=== PATIENT | female | born 1995 | race Caucasian/White ===

== ENCOUNTER 2016-10-11 14:00 | Outpatient (CLI) | payer MEDICAID ==
[2016-10-11 16:18] LABS: BASOPHILS % 0.3 % (0.0-2.0); CONDITION 1; EOSINOPHILS # 0.1 10^3/ul (0.0-0.5); EOSINOPHILS % 0.6 % (0.0-7.0); HEMATOCRIT 30.6 % (37.0-47.0); HEMOGLOBIN 10.2 g/dl (12.0-16.0); LH ANALYZER COMMENTS 1; LYMPHOCYTES # 1.6 10^3/ul (0.8-2.9); LYMPHOCYTES % 15.5 % (18.0-55.0); MEAN CORPUSCULAR HEMOGLOBIN 25.5 pg (29.0-33.0); MEAN CORPUSCULAR HGB CONC 33.3 g/dl (32.0-37.0); MEAN CORPUSCULAR VOLUME 76.5 fl (72.0-104.0); MEAN PLATELET VOLUME 9.6 fl (7.4-10.4); MONOCYTE # 0.9 10^3/ul (0.3-0.9); MONOCYTES % 8.1 % (0.0-13.0); NEUTROPHILS % 75.5 % (30.0-74.0); PLATELET COUNT 304 10^3/UL (140-440); RED CELL DISTRIBUTION WIDTH 14.2 % (11.5-14.5); UNCORRECTED WBC 10.6 10^3/ul (4.8-10.8); WHITE BLOOD COUNT 10.6 10^3/ul (4.8-10.8)
--- NOTE | 2016-10-11 17:10 | QN ---
Documentation Comment 21 y/o female at 37 + weeks C/S onset of UC sand ? SROM at 0900 AM denies complications during PMH , PSH negative On Exam: Cx; 1 cm 30-40%( per nurse) BPP 8/8 FHTs Reactive on EFM minimal UCs seen will D/C home with labor precautions PATRICIO ESPARZA MD Oct 11, 2016 17:10
--- NOTE | 2016-10-11 19:07 | RADRPT ---
PROCEDURE: OB ultrasound limited for biophysical profile . CLINICAL INDICATION: Possible spontaneous rupture of membranes. TECHNIQUE: Multiple sonographic images of the pelvis were obtained. Transabdominal view of the gr avid uterus are available for review. The images were reviewed on a PACS workstation. COMPARISON: None FINDINGS: breathing movement = 2/2 tone = 2/2 motion = 2/2 Amniotic fluid volume = 2/2 MAYRA = 11.2 cm Cephalic presentation. Heart rate 163 beats per minute. Posterior grade II placenta. IMPRESSION: 1. Single viable intrauterine gestation. 2. Biophysical profile = 8/8. 3. MAYRA = 11.2 cm. RPTAT: HJPL .Elpidio Ibrahim MD, MD Date Time Electronically viewed and signed by .Elpidio Ibrahim MD, on 10/11/2016 19:07 .L/
== END 2016-10-11 17:30 | disposition home or self-care (01) ==
LOC: OBT 14:00 → L-D 14:00 → OBT 17:30
PROVIDERS: ATTEND Obstetrics & Gynecology
DX: O62.9 Abnormality of forces of labor, unspecified (principal); O26.893 Other specified pregnancy related conditions, third trimester; Z3A.37 37 weeks gestation of pregnancy
CPT/HCPCS: 36415; 76818; 84112; 85025; Z7500; G0463

== ENCOUNTER 2016-10-28 16:00 | Inpatient (IN) | payer MEDICAID ==
[~2016-10-28] VITALS: Ht 154.9 cm; Wt 65.3 kg
[2016-10-28 16:26] VITALS: Ht 154.9 cm; Wt 65.3 kg
[2016-10-28 16:27] VITALS: BP 111/66; PULSE 96; RESP 18
--- NOTE | 2016-10-28 17:43 | TRIAGE ---
OB Triage Datetime Report Generated by CPN: 10/28/2016 17:42 Datetime: 10/28/2016 17:09 Vaginal Exam Dilatation (cms): 3.5 Effacement (%): 70 Station: -2 Exam By: MKHEMANI Vaginal Bleeding: None Cervix, Consistency: Moderate Cervix, Position: Midposition Datetime: 10/28/2016 16:23 Assessment Type: Triage Maternal Assessment Level of Consciousness: Fully Conscious DTR's/Clonus: DTRs 2+; No Clonus Headache: Denies Blurred Vision: No Respiratory Effort: Unlabored; Regular Rhythm; Equal Expansion Breath Sounds, Left: Clear and Equal Breath Sounds, Right: Clear and Equal Nausea/Vomiting: Denies RUQ Epigastric Pain: Denies Lower Extremities Edema: None Degree: None Upper Extremities Edema: None Degree: None Facial Edema: None Fall Risk Assessment History of Falling: (0) No Secondary Diagnosis: (0) No Ambulatory Aid: (0) Bedrest/Nurse Assist IV Therapy: (0) No Gait: (0) Normal/Bedrest/Immobile Mental Status: (0) Oriented to Own Ability Fall Score: 0 Fall Risk Score Definition: No Risk: No action required Datetime: 10/28/2016 16:14 Time of Arrival: 10/28/2016 15:58 EGA: 40.0 Arrived By: Ambulatory Arrived From: Home Chief Complaint: c/o UC'S SINCE 1200 Movement: Present Contractions: Irregular Time Contractions Began: 10/28/2016 12:00 Rupture of Membranes: Denies Vaginal Bleeding: None Vaginal Discharge: Denies Recent Sexual Intercouse: Denies Abdominal Trauma: Not Applicable Patient Complaints: Contractions; Cramping; Back Pain Time Provider Notified: 10/28/2016 17:35 Provider Notified: SALVATORE Initial Plan: EFM, SVE Datetime: 10/11/2016 16:50 Labor Evaluation Frequency: IRREG Monitor Mode: External Duration (sec)2399: 50-60 Quality: Mild Pattern: Normal: <= 5 Contractions in 10 Minutes Resting Tone [place]: Relaxed Heart Rate FHR Baseline Rate: 125 Monitor Mode: External US Variability: Moderate 6-25 bpm Decelerations: None Category: Category I Pain Assessment Pain Scale: 0 Pain Presence: None/Denies Pain Type: N/A Pain Goal: 2 Pain Relief Measures: Comfort Measures Datetime: 10/11/2016 16:17 Stage of : OB Triage Datetime: 10/11/2016 15:45 Labor Evaluation Frequency: OCCAS Monitor Mode: External Duration (sec)2399: 50-60 Pattern: Normal: <= 5 Contractions in 10 Minutes Resting Tone [place]: Relaxed Heart Rate FHR Baseline Rate: 135 Monitor Mode: External US Variability: Moderate 6-25 bpm Decelerations: None Category: Category I Pain Assessment Pain Scale: 2 Pain Presence: None/Denies Pain Type: N/A Pain Goal: 0 Pain Relief Measures: Comfort Measures Datetime: 10/11/2016 15:10 Stage of : OB Triage Datetime: 10/11/2016 15:01 Stage of : OB Triage Datetime: 10/11/2016 14:57 Vaginal Exam Dilatation (cms): 1.0 Effacement (%): 50 Station: -2 Exam By: suzie jaylen Vaginal Bleeding: None Cervix, Consistency: Soft Cervix, Position: Midposition Presentation 'A': Cephalic Datetime: 10/11/2016 14:45 Stage of : OB Triage Assessment Type: Triage Maternal Assessment Level of Consciousness: Fully Conscious DTR's/Clonus: DTRs 2+; No Clonus Headache: Denies Blurred Vision: No Respiratory Effort: Unlabored; Regular Rhythm; Equal Expansion Breath Sounds, Left: Clear and Equal Breath Sounds, Right: Clear and Equal Nausea/Vomiting: Denies RUQ Epigastric Pain: Denies Lower Extremities Edema: None Degree: None Upper Extremities Edema: None Degree: None Facial Edema: None Temperature Route: Axillary Fall Risk Assessment History of Falling: (0) No Secondary Diagnosis: (0) No Ambulatory Aid: (0) Bedrest/Nurse Assist IV Therapy: (0) No Gait: (0) Normal/Bedrest/Immobile Mental Status: (0) Oriented to Own Ability Fall Score: 0 Fall Risk Score Definition: No Risk: No action required Labor Evaluation Frequency: 0 Monitor Mode: External Pattern: Normal: <= 5 Contractions in 10 Minutes Resting Tone [place]: Relaxed Heart Rate FHR Baseline Rate: 155 Monitor Mode: External US Variability: Moderate 6-25 bpm Decelerations: None Category: Category I Pain Assessment Pain Scale: 0 Pain Presence: None/Denies Pain Type: N/A Pain Goal: 3 Pain Relief Measures: Comfort Measures Datetime: 10/11/2016 14:42 Time of Arrival: 10/11/2016 13:50 EGA: 37.4 Arrived By: Ambulatory Arrived From: Home Chief Complaint: C/O POSS LEAKING OF FLUID, DENIES BLEEDING, SM AMOUNT OF PAIN WHEN WATER LEAKS Movement: Present Contractions: Denies/Absent Rupture of Membranes: Unsure Vaginal Bleeding: None Vaginal Discharge: Denies Recent Sexual Intercouse: Denies Abdominal Trauma: Not Applicable Time Provider Notified: 10/11/2016 15:01 Provider Notified: SALVATORE Initial Plan: MONITOR, ROM PLUS, NITRAZINE, VE, BPP/MAYRA
[2016-10-28] MEDS ORDERED: LACTATED RINGER'S 1,000 ML IV PRN (18:00)
[2016-10-28] MEDS ORDERED: LIDOCAINE 1% (MPF) 30 ML INJ INJ PRN (18:00)
[2016-10-28] MEDS ORDERED: CARBOPROST 250 MCG INJ IM PRN (18:00)
[2016-10-28] MEDS ORDERED: OXYTOCIN 30 UNITS/LR 500 ML IV PRN (18:00)
[2016-10-28] MEDS ORDERED: BUTORPHANOL 2 MG INJ IV PRN (18:00)
[2016-10-28] MEDS ORDERED: OXYTOCIN 30 UNITS/LR 500 ML IV SCH ×2 (18:00)
[2016-10-28] MEDS ORDERED: AMPICILLIN 2 GM/NS (PMX) 100 ML IV ONE (18:00)
[2016-10-28] MEDS ORDERED: MINERAL OIL LIGHT 10 ML VIAL TOP PRN (18:00)
[2016-10-28] MEDS ORDERED: MISOPROSTOL 200 MCG TAB PR PRN (18:00)
[2016-10-28] MEDS ORDERED: IBUPROFEN 600 MG TAB PO PRN (18:00)
[2016-10-28] MEDS ORDERED: METHYLERGONOVINE 0.2 MG INJ IM PRN (18:00)
[2016-10-28] MEDS: LACTATED RINGER'S 1,000 ML IV SCH (18:13)
[2016-10-28] MEDS ORDERED: MINERAL OIL LIGHT 10 ML VIAL TOP ONE (19:00)
[2016-10-28 19:22] LABS: BASOPHILS % 0.2 % (0.0-2.0); EOSINOPHILS # 0.1 10^3/ul (0.0-0.5); EOSINOPHILS % 0.6 % (0.0-7.0); HEMATOCRIT 35.1 % (37.0-47.0); HEMOGLOBIN 11.2 g/dl (12.0-16.0); LYMPHOCYTES # 1.9 10^3/ul (0.8-2.9); LYMPHOCYTES % 15.3 % (18.0-55.0); MEAN CORPUSCULAR HEMOGLOBIN 24.4 pg (29.0-33.0); MEAN CORPUSCULAR VOLUME 76.2 fl (72.0-104.0); MONOCYTES % 7.8 % (0.0-13.0); NEUTROPHIL # 9.5 10^3/ul (1.6-7.5); NEUTROPHILS % 76.1 % (30.0-74.0); PLATELET COUNT 291 10^3/UL (140-440); RED BLOOD COUNT 4.61 10^6/ul (4.20-5.40); RED CELL DISTRIBUTION WIDTH 15.1 % (11.5-14.5); UNCORRECTED WBC 12.5 10^3/ul (4.8-10.8); WHITE BLOOD COUNT 12.5 10^3/ul (4.8-10.8)
[2016-10-28 19:26] LABS: CONDITION 1; LH ANALYZER COMMENTS 1
[2016-10-28 19:31] LABS: INR 0.99; PROTIME 13.1 Sec (12.2-14.2)
[2016-10-28 19:32] LABS: PARTIAL THROMBOPLASTIN TIME 28.4 Sec (25.0-35.0)
[2016-10-28 20:24] LABS: BARBITURATES NEGATIVE (NEGATIVE); BENZODIAZEPINES NEGATIVE (NEGATIVE); CANNABINOIDS NEGATIVE (NEGATIVE); COCAINE NEGATIVE (NEGATIVE); OPIATES NEGATIVE (NEGATIVE)
[2016-10-28] MEDS: AMPICILLIN 1 GM/NS (PMX) 50 ML IV SCH (22:30)
[2016-10-29] VITALS (8 sets, daily range): BP systolic 94–110; BP diastolic 50–66; PULSE 73–92; RESP 18–20
[2016-10-29] MEDS: AMPICILLIN 1 GM/NS (PMX) 50 ML IV SCH ×4 (02:30→14:24)
[2016-10-29] MEDS: LACTATED RINGER'S 1,000 ML IV SCH ×2 (04:32→13:49)
[2016-10-29] MEDS ORDERED: OXYTOCIN 30 UNITS/LR 500 ML IV SCH (09:30)
--- NOTE | 2016-10-29 18:17 | HP ---
Date/Time of Note Date/Time of Note DATE: 10/29/16 TIME: 18:12 OB - History Hx of Present Free Text/Dictation admitted in early labor at 40 + weeks Chief Complaint: labor pains Last Menstrual Period: Jan 21, 2016 Estimated Due Date: Oct 28, 2016 : 2 Para: 1 Care: Good Care Ultrasounds: Normal mid trimester US Obstetrical Complications: None Medical Complications: None Past Family/Social History * Past Medical, Surgical, Family and Obstetric Histories reviewed from chart. Blood Type: A+ Rubella: unknown RPR/VDRL: Negative GBS Status: Unknown HBsAG: Negative OB Admission Exam Vital Signs Vital Signs Vital Signs Date Time Temp Pulse Resp B/P Pulse Ox O2 Delivery O2 Flow Rate FiO2 10/29/16 12:05 83 10/28/16 16:27 98.0 18 111/66 Room Air Physical Exam HEENT: WNL Heart: Rhythm Normal Lungs: Clear, Equal Abdomen: WNL Extremities: Normal Reflexes: Normal Cervical Dilatation: 3cm Effacement: 25% Station: -3 Membranes: Intact Heart Rate: 130's Accelerations: Accelerations Present Decelerations: No Decelerations Varibility: Moderate Contractions on Admission: 6-10 Minutes Apart Date/Time Contractions Began: 10/28/2016 Frequency of Contractions: q 3 Duration: >45 seconds Intensity: Mild Last 72 hours Lab Results CBC & BMP 10/28/16 18:00 OB Assessment/Plan Other Assessment: term gestation labor pains Plan: Expectant Management Other plan: proceed with labor PATRICIO ESPARZA MD Oct 29, 2016 18:16
--- NOTE | 2016-10-29 18:19 | LDN ---
Date/Time of Note Date/Time of Note DATE: 10/29/16 TIME: 18:17 Delivery Summary of a viable infant over intact perineum Placenta Delivered: Spontaneously Meconium: none Perineum intact?: Yes Anesthesia type: None Estimated blood loss: 300 Sponge & Needle done & correct: Yes All needle counts correct: Yes Any foreign bodies felt in the: No Problems: Delivery Information Sex Infant Sex: male Apgars 1 Minute: 9 5 Minute: 9 Suctioning Nose & mouth suctioned at [place]: Yes Delee suction performed: No Umbilical Cord Umbilical cord with: 3 Vessels Cord presentations: no nuchal cord Cord Blood was obtained: Yes Mother & Baby Disposition Disposition Mom & Baby to Maternity; Good: Yes (mother and baby were recovered in good condition ) Mom transferred to: Other (maternity ) Baby to NICU: No PATRICIO ESPARZA MD Oct 29, 2016 18:19
--- NOTE | 2016-10-29 19:01 | DELSUM ---
Delivery Summary A-C Datetime Report Generated by CPN: 10/29/2016 19:01 DELIVERY PERSONNEL Technical Solutions Director: Leora Schultz MATERNAL INFORMATION Delivery Anesthesia: None Medications in Delivery: Oxytocin 30 units Estimated Blood Loss (ml): 300 Placenta Cultured: No Maternal Complications: None LABOR SUMMARY EDC: 10/28/2016 00:00 No. Babies in Womb: 1 Attempted: No Labor Anesthesia: None LABOR INFORMATION Reason for Induction: Not Applicable Onset of Labor: 10/28/2016 12:00 Complete Dilatation: 10/29/2016 17:35 Oxytocin: Augmentation Group B Beta Strep: Not Done Antibiotics # of Doses: 6 Antibiotics Time of Last Dose: 1430 Steroids Given: None Reason Steroids Not Administered: Not Applicable MEMBRANES Membranes Rupture Method: Artificial Rupture of Membranes: 10/29/2016 14:45 Length of Rupture (hr): 2.95 Amniotic Fluid Color: Clear Amniotic Fluid Amount: Moderate Amniotic Fluid Odor: None STAGES OF LABOR Stage 1 hr: 29 Stage 1 min: 35 Stage 2 hr: 0 Stage 2 min: 7 Stage 3 hr: 0 Stage 3 min: 1 Total Time in Labor hr: 29 Total Time in Labor min: 43 VAGINAL DELIVERY Episiotomy: None Laceration Extension: N/A Laceration Type: None Laceration Repair: Not Applicable Initial Vag Sponge Count: 20 Final Vag Sponge Count: 20 Initial Vag Sharps Count: 1 Final Vag Sharps Count: 1 Sponge Count Correct: Yes; Vaginal Sweep Performed Sharps Count Correct: No BABY A INFORMATION Infant Delivery Date/Time: 10/29/2016 17:42 Method of Delivery: Vaginal Born in Route : No : N/A Forceps: N/A Vacuum Extraction: N/A Shoulder Dystocia : N/A SHOULDER DYSTOCIA BABY A Delivery Date/Time: 10/29/2016 17:42 PRESENTATION/POSITION BABY A Presentation: Cephalic Cephalic Presentation: Vertex Vertex Position: Left Occipital Anterior Breech Presentation: N/A PLACENTA INFORMATION BABY A Placenta Delivery Time : 10/29/2016 17:43 Placenta Method of Delivery: Spontaneous Placenta Status: Delivered SCORES BABY A Heart Rate 1 min: >100 bpm Resp Effort 1 min: Good Cry Reflex Irritability 1 min: Cough/Sneeze/Pulls Away Muscle Tone 1 min: Active Motion Color 1 min: Blue/Pale Resuscitation Effort 1 min: Tactile Stimulation SCORE 1 MIN: 8 Heart Rate 5 min: >100 bpm Resp Effort 5 min: Good Cry Reflex Irritability 5 min: Cough/Sneeze/Pulls Away Muscle Tone 5 min: Active Motion Color 5 min: Body [place], Extremit Blue Resuscitation Effort 5 min: Tactile Stimulation SCORE 5 MIN: 9 INFANT INFORMATION BABY A Gestational Age at Delivery: 40.1 Gestational Status: Full Term- 39- 40.6 Weeks Infant Outcome : Liveborn Infant Condition : Stable Sex: Female IDENTIFICATION/MEDS BABY A ID Band Number: [id number] ID Band Location: Right Leg; Left Arm Sensor Applied: Yes Sensor Number: [id number] Sensor Location : Cord Clamp Vitamin K Given : Not Given Erythromycin Given: Not Given WEIGHT/LENGTH BABY A Birthweight (gm): 2910 Infant Weight (lb): 6 Weight (oz): 7 Infant Length (in): 19.00 Infant Length (cm): 48.26 CORD INFORMATION BABY A No. Cord Vessels: 3 Nuchal Cord : N/A Cord Blood Taken: Yes Infant Suction: Nose; Pharynx ASSESSMENT BABY A Infant Complications: Multiple Variable Decels Physical Findings at Delivery: Within Normal Limits Infant Respirations: Appears Normal Change Director/ALS Called : No Care By: Isha Breen RN Transferred To: Remains with Mother
[2016-10-29] MEDS ORDERED: LACTATED RINGER'S 1,000 ML IV* SCH (21:23)
[2016-10-29] MEDS ORDERED: METHYLERGONOVINE 0.2 MG INJ IM PRN (21:30)
[2016-10-29] MEDS ORDERED: OXYTOCIN 30 UNITS/LR 500 ML IV PRN (21:30)
[2016-10-29] MEDS ORDERED: CARBOPROST 250 MCG INJ IM PRN (21:30)
[2016-10-29] MEDS ORDERED: BENZOCAINE 20% 56 ML SPRAY TOP PRN (21:30)
[2016-10-29] MEDS ORDERED: ZOLPIDEM 5 MG TAB PO PRN (21:30)
[2016-10-29] MEDS ORDERED: ACETAMINOPHEN/CODEINE #3 TAB PO PRN ×2 (21:30)
[2016-10-29] MEDS ORDERED: WITCH HAZEL/GLYCERIN PAD PR PRN (21:30)
[2016-10-29] MEDS ORDERED: DIBUCAINE 1% 30 GM OINT PR PRN (21:30)
[2016-10-29] MEDS ORDERED: MISOPROSTOL 200 MCG TAB PR PRN (21:30)
[2016-10-29] MEDS ORDERED: LANOLIN 7 GM TUBE TOP PRN (21:30)
[2016-10-30] VITALS: BP 111/58; PULSE 88; RESP 18
[2016-10-30] MEDS: IBUPROFEN 600 MG TAB PO SCH ×5 (00:17→23:33)
[2016-10-30 04:00] VITALS: BP 112/58; PULSE 75; RESP 20
[2016-10-30 08:15] VITALS: BP 111/58; PULSE 80
[2016-10-30] MEDS: MAGNESIUM HYDROXIDE 30ML CUP PO SCH ×2 (09:00→21:19)
[2016-10-30] MEDS: SENNA/DOCUSATE NA (8.6MG/50MG) TAB PO SCH ×2 (09:00→21:19)
--- NOTE | 2016-10-30 09:42 | DS ---
Date/Time of Note Date/Time of Note home next day DATE: 10/30/16 TIME: 09:41 Obstetrical Discharge Record Final Diagnosis Final Diagnosis: Term delivered Other Final Diagnosis S/P vaginal delivery Vaginal Delivery Obstetrical Delivery: Spontaneous Complications Augmentation: Yes Condition on Discharge Physical Assessment Last Vitals: see nurses notes Voiding: Yes Bowel Movement: Yes Breast: Soft, non-tender, Filling Fundus: Firm Abdomen and Incision: soft BS + Episiotomy: NA Calf Tenderness: No Patient Condition: Good PATRICIO ESPARZA MD Oct 30, 2016 09:42
--- NOTE | 2016-10-30 09:44 | PD.PPDC ---
SPECIAL EDUCATOR Discharge Instruction Provider Information Physician Information 21 y/o female had vaginal delivery Diagnosis Final Diagnosis: S/P vaginal delivery Condition Patient Condition: Good Diet Diet: Resume Regular Diet Activity/Restrictions Activity: Normal Activity May Shower Restrictions: Nothing in the Vagina Return to Work or School: Dec 15, 2016 Follow-up Follow-up with Physician: 4, Week/Weeks Return to clinic for OB Instructions: Breast Tenderness Depression PATRICIO ESPARZA MD Oct 30, 2016 09:44
[2016-10-30] MEDS ORDERED: IBUP-1542 PO (09:45)
[2016-10-30 09:48] LABS: BASOPHILS % 0.3 % (0.0-2.0); EOSINOPHILS # 0.1 10^3/ul (0.0-0.5); EOSINOPHILS % 0.4 % (0.0-7.0); HEMATOCRIT 27.5 % (37.0-47.0); LYMPHOCYTES # 2.1 10^3/ul (0.8-2.9); LYMPHOCYTES % 16.2 % (18.0-55.0); MEAN CORPUSCULAR HGB CONC 32.7 g/dl (32.0-37.0); MEAN CORPUSCULAR VOLUME 76.4 fl (72.0-104.0); MEAN PLATELET VOLUME 10.5 fl (7.4-10.4); MONOCYTE # 1.5 10^3/ul (0.3-0.9); MONOCYTES % 11.2 % (0.0-13.0); NEUTROPHIL # 9.4 10^3/ul (1.6-7.5); NEUTROPHILS % 71.9 % (30.0-74.0); PLATELET COUNT 223 10^3/UL (140-440); RED BLOOD COUNT 3.59 10^6/ul (4.20-5.40); RED CELL DISTRIBUTION WIDTH 15.5 % (11.5-14.5); UNCORRECTED WBC 13.1 10^3/ul (4.8-10.8); WHITE BLOOD COUNT 13.1 10^3/ul (4.8-10.8)
[2016-10-30 09:58] LABS: CONDITION 1; LH ANALYZER COMMENTS 1
[2016-10-30 15:49] VITALS: BP 108/73; PULSE 89; RESP 18
[2016-10-30 20:10] VITALS: BP 116/59; PULSE 73; RESP 18
[2016-10-31] MEDS ORDERED: INFLUENZA VIRUS VACCINE 0.5 ML (DISPENSING) IM* ONE (02:30)
[2016-10-31 03:45] VITALS: BP 118/72; PULSE 86; RESP 18
[2016-10-31] MEDS: IBUPROFEN 600 MG TAB PO SCH ×2 (05:48→11:30)
[2016-10-31 08:58] VITALS: BP 114/55; PULSE 72; RESP 14
[2016-10-31] MEDS: SENNA/DOCUSATE NA (8.6MG/50MG) TAB PO SCH (09:00)
[2016-10-31] MEDS ORDERED: MEASLES,MUMPS,RUBELLA VACCINE INJ SC* ONE (09:00)
[2016-10-31] MEDS: MAGNESIUM HYDROXIDE 30ML CUP PO SCH (09:00)
[2016-10-31] MEDS ORDERED: DIPHTH/TET/ACEL PERTUSS (ADULT) 0.5 ML VIAL IM* ONE (09:00)
[2016-10-31] MEDS ORDERED: VARICELLA VACCINE LIVE/PF 1,350 UNIT/0.5 ML ML SC* ONE (09:00)
[2016-10-31 15:55] VITALS: BP 120/60; PULSE 68; RESP 16
[2016-11-01] MEDS ORDERED: INFLUENZA VIRUS VACCINE 0.5 ML (DISPENSING) IM* ONE (09:00)
== END 2016-10-31 18:51 | disposition home or self-care (01) | DRG 775 ==
LOC: L-D 16:00 → OBT 16:00 → L-D 16:01 → OBT 17:35 → L-D 17:35 → PP1 10-29 20:24
PROVIDERS: ADMIT Obstetrics & Gynecology; ATTEND Obstetrics & Gynecology
PROC: 10E0XZZ Delivery of Products of Conception, External Approach (ICD-10-PCS; principal; 2016-10-29)
DX: O80 Encounter for full-term uncomplicated delivery (principal); Z37.0 Single live birth; Z3A.40 40 weeks gestation of pregnancy
CPT/HCPCS: 80307; 85025; 85610; 85730; 86592; 86900; 86901; 90686; 90715; 90716; G0463; J0290; J2590; J7120

== ENCOUNTER 2017-02-12 17:02 | Emergency (ER) | payer MEDICAID ==
[~2017-02-12] VITALS: Ht 160 cm; Wt 58.0 kg
[~2017-02-12 17:02] MED LIST: IBUP-1542 PO
[2017-02-12 17:27] VITALS: Ht 160 cm; Wt 58.0 kg
--- NOTE | 2017-02-12 17:57 | ERD ---
ER Documentation Chief Complaint Date/Time DATE: 02/12/17 TIME: 17:55 Chief Complaint ap x 3 weeks; no n/v/d; fever intemittent x 3 weeks HPI 21-year-old female comes to emergency room with 3 weeks of intermittent cramping pain in the suprapubic region as well as left upper quadrant. She states that she has never had this pain before, and is not going away. She reports that she has had 2 other children, the last child was born 3 months ago. She states that she has felt warm, however has not checked her temperature. She denies nausea or vomiting or diarrhea. ROS All systems reviewed and are negative except as per history of present illness. Medications Home Meds Active Scripts Cephalexin* (Keflex*) 500 Mg Capsule, 500 MG PO TID for 7 Days, CAP Prov:ALEXANDRE CULLEN PA-C 02/12/17 Ibuprofen* (Ibuprofen*) 600 Mg Tablet, 600 MG PO Q6, #20 TAB 0 Refills Prov:PATRICIO ESPARZA MD 10/30/16 Allergies Allergies: Coded Allergies: No Known Allergy (Unverified , 02/12/17) Physical Exam Vitals Vital Signs Date Time Temp Pulse Resp B/P Pulse Ox O2 Delivery O2 Flow Rate FiO2 02/12/17 17:27 98.3 73 18 107/57 99 Physical Exam General: Well-developed, well-nourished. The patient appears in no acute distress. HEENT: Head is normocephalic, atraumatic. No scleral icterus. Neck: Supple. Nontender. Lungs: Clear to auscultation. Normal air movement. Heart: Regular rate and rhythm. S1 and S2 are normal. No murmurs, gallops, or rubs. Abdomen: Soft, suprapubic tenderness, nondistended. Bowel sounds are normoactive. Extremities: No clubbing or cyanosis. Normal pulses. Moving extremities x 4. No weakness. Neurologic: Alert and oriented 3. No focal deficits. Skin: Normal turgor. No rash or lesions. Result Diagram: 02/12/17 1745 02/12/17 1745 Results 24 hrs Laboratory Tests Test 02/12/17 17:45 02/12/17 18:00 White Blood Count 9.110^3/ul Red Blood Count 5.0910^6/ul Hemoglobin 13.5g/dl Hematocrit 41.6% Mean Corpuscular Volume 81.7fl Mean Corpuscular Hemoglobin 26.5pg Mean Corpuscular Hemoglobin Concent 32.5g/dl Red Cell Distribution Width 16.6% Platelet Count 64438^3/UL Mean Platelet Volume 11.8fl Neutrophils % 65.3% Lymphocytes % 23.5% Monocytes % 9.5% Eosinophils % 1.3% Basophils % 0.2% Nucleated Red Blood Cells % 0.0/100WBC Neutrophils # 5.910^3/ul Lymphocytes # 2.110^3/ul Monocytes # 0.910^3/ul Eosinophils # 0.110^3/ul Basophils # 0.010^3/ul Nucleated Red Blood Cells # 0.010^3/ul Urine Color LT. YELLOW Urine Clarity CLOUDY Urine pH 6.0 Urine Specific [place] 1.020 Urine Ketones NEGATIVE Urine Nitrite NEGATIVE Urine Bilirubin NEGATIVE Urine Urobilinogen 0.2 E.U./dL Urine Leukocyte Esterase 3+ Urine Microscopic RBC NONE SEEN/HPF Urine Microscopic WBC 10-25/HPF Urine Squamous Epithelial Cells MANY Urine Bacteria MANY Urine Hemoglobin NEGATIVE Urine Glucose NEGATIVE% Urine Total Protein TRACE Sodium Level 141mmol/L Potassium Level 3.9mmol/L Chloride Level 104mmol/L Carbon Dioxide Level 23mmol/L Anion Gap 18 Blood Urea Nitrogen 9mg/dl Creatinine 0.62mg/dl Glucose Level 86mg/dl Calcium Level 8.8mg/dl Total Bilirubin 0.1mg/dl Direct Bilirubin 0.00mg/dl Indirect Bilirubin 0.1mg/dl Aspartate Amino Transf (AST/SGOT) 21IU/L Alanine Aminotransferase (ALT/SGPT) 18IU/L Alkaline Phosphatase 55IU/L Total Protein 7.9g/dl Albumin 4.5g/dl Globulin 3.40g/dl Albumin/Globulin Ratio 1.32 Lipase 125U/L Beta HCG, Quantitative 19299.0mIU/ml Current Medications Medications (Trade) Dose Ordered Sig/Ej Route PRN Reason Start Time Stop Time Status Last Admin Dose Admin Cephalexin (Keflex) 500 mg ONCE ONCE PO 02/12/17 19:00 02/12/17 19:01 DC 02/12/17 18:54 PROCEDURE: OBSTETRICAL ULTRASOUND WITH ENDOVAGINAL IMAGES CLINICAL INDICATION: Pelvic pain TECHNIQUE: Multiple sonographic images of the pelvis were obtained utilizing a transabdominal and endovaginal technique. The images were reviewed on a PACS workstation. COMPARISON: None. FINDINGS: The uterus measures 8.8 x 5.4 cm. There is a single live intrauterine with heart rate of 107 beats per minute, mean sac diameter of 1.31 cm, yolk sac, and crown-rump length of 0.42 cm which is consistent with a gestational age of 6 weeks, 1 day . The estimated date of delivery by ultrasound is 10/07/2017 . There is a 9 x 6 x 8 mm hypoechoic and hypovascular lesion adjacent to the gestational sac consistent with a subchorionic hemorrhage. The right ovary measures 3.3 x 2.1 x 2.8 cm. The left ovary measures 2.3 x 1.1 x 2.0 cm. There is normal vascular flow in both ovaries. No significant ovarian lesions are seen. No significant pelvic free fluid is identified. IMPRESSION: Single live intrauterine consistent with a gestational age of 6 weeks , 1 day . The estimated date of delivery is 10/07/2017 . 9 mm subchorionic hemorrhage. RPTAT: EE Physician Chanel Date Time Electronically viewed and signed by Physician Chanel on 02/12/2017 19:02 RA/ Procedures/MDM ED course: Urine was positive, patient was notified of these results, therefore further blood work was obtained and an ultrasound of the pelvis. MDM: 21-year-old female comes in with pelvic pain, new positive test noted in the emergency room at this time. Patient has is a single live intrauterine seen on ultrasound today. Subchorionic hemorrhage is noted to be on the ultrasound however she does not have any vaginal bleeding, she is also type and Rh A+ and there is no indication for RhoGam. Pelvic pain can be explained from her urinary tract infection, she was given Keflex in the emergency department. She will be asked to take Tylenol, recheck with her OB in the next 3-4 days. There is no evidence of an ovarian torsion, adnexal masses, ectopic . Departure Diagnosis: Primary Impression: First trimester Additional Impression: UTI (urinary tract infection) Condition: Good ALEXANDRE CULLEN PA-C February 12, 2017 17:57
[2017-02-12 18:00] LABS: ADD SCAN DIFF NO
[2017-02-12 18:01] LABS: BASOPHILS % 0.2 % (0.0-2.0); EOSINOPHILS # 0.1 10^3/ul (0.0-0.5); EOSINOPHILS % 1.3 % (0.0-7.0); HEMATOCRIT 41.6 % (37.0-47.0); HEMOGLOBIN 13.5 g/dl (12.0-16.0); LYMPHOCYTES # 2.1 10^3/ul (0.8-2.9); LYMPHOCYTES % 23.5 % (18.0-55.0); MEAN CORPUSCULAR HEMOGLOBIN 26.5 pg (29.0-33.0); MEAN CORPUSCULAR HGB CONC 32.5 g/dl (32.0-37.0); MEAN CORPUSCULAR VOLUME 81.7 fl (72.0-104.0); MEAN PLATELET VOLUME 11.8 fl (7.4-10.4); MONOCYTE # 0.9 10^3/ul (0.3-0.9); MONOCYTES % 9.5 % (0.0-13.0); NEUTROPHIL # 5.9 10^3/ul (1.6-7.5); NEUTROPHILS % 65.3 % (30.0-74.0); PLATELET COUNT 313 10^3/UL (140-415); RED BLOOD COUNT 5.09 10^6/ul (4.20-5.40); RED CELL DISTRIBUTION WIDTH 16.6 % (11.5-14.5); WHITE BLOOD COUNT 9.1 10^3/ul (4.8-10.8)
[2017-02-12 18:02] LABS: ADD UMIC YES; URINE BILIRUBIN (Dip) NEGATIVE (NEGATIVE); URINE BLOOD (Dip) NEGATIVE (NEGATIVE); URINE COLOR LT. YELLOW (YELLOW); URINE GLUCOSE (Dip) NEGATIVE (NEGATIVE); URINE KETONES (Dip) NEGATIVE (NEGATIVE); URINE LEUKOCYTE ESTERASE (Dip) 3+ (NEGATIVE); URINE NITRITE (Dip) NEGATIVE (NEGATIVE); URINE TOTAL PROTEIN (Dip) TRACE (NEGATIVE); URINE UROBILINOGEN (Dip) 0.2 E.U./dL (0.1-1.0)
[2017-02-12 18:12] LABS: BACTERIA,URINE MANY; SQUAMOUS EPITHELIAL CELL,UR MANY; URINE RBCS NONE SEEN /HPF (0)
[2017-02-12 18:19] LABS: ALBUMIN 4.5 g/dl (3.3-4.9)
[2017-02-12 18:20] LABS: POTASSIUM 3.9 mmol/L (3.5-5.1)
[2017-02-12 18:22] LABS: ALBUMIN/GLOBULIN RATIO 1.32; BILIRUBIN,INDIRECT 0.1 mg/dl (0-1.1); BILIRUBIN,TOTAL 0.1 mg/dl (0.2-1.3); CREATININE 0.62 mg/dl (0.44-1.00); TOTAL PROTEIN 7.9 g/dl (6.1-8.1)
[2017-02-12 18:23] LABS: CALCIUM 8.8 mg/dl (8.4-10.2)
[2017-02-12] MEDS ORDERED: CEPHALEXIN 500 MG CAP PO ONE (19:00)
--- NOTE | 2017-02-12 19:02 | RADRPT ---
PROCEDURE: OBSTETRICAL ULTRASOUND WITH ENDOVAGINAL IMAGES CLINICAL INDICATION: Pelvic pain TECHNIQUE: Multiple sonographic images of the pelvis were obtained utilizing a transabdominal and endovaginal technique. The images were reviewed on a PACS workstation. COMPARISON: None. FINDINGS: The uterus measures 8.8 x 5.4 cm. There is a single live intrauterine with heart rate of 107 beats per minute, mean sa c diameter of 1.31 cm, yolk sac, and crown-rump length of 0.42 cm which is consistent with a gestati onal age of 6 weeks, 1 day . The estimated date of delivery by ultrasound is 10/07/2017 . There is a 9 x 6 x 8 mm hypoechoic and hypovascular lesion adjacent to the gestational sac consisten t with a subchorionic hemorrhage. The right ovary measures 3.3 x 2.1 x 2.8 cm. The left ovary measures 2.3 x 1.1 x 2.0 cm. There is no rmal vascular flow in both ovaries. No significant ovarian lesions are seen. No significant pelvic free fluid is identified. IMPRESSION: Single live intrauterine consistent with a gestational age of 6 weeks, 1 day . The estimated date of delivery is 10/07/2017 . 9 mm subchorionic hemorrhage. RPTAT: EE Physician Chanel Date Time Electronically viewed and signed by Physician Chanel on 02/12/2017 19:02 /
[2017-02-12] MEDS ORDERED: CEPH-443 PO (19:11)
== END 2017-02-12 19:47 | disposition home or self-care (01) ==
LOC: FTE 17:02
DX: O23.41 Unspecified infection of urinary tract in pregnancy, first trimester (principal); R10.2 Pelvic and perineal pain; Z3A.01 Less than 8 weeks gestation of pregnancy
CPT/HCPCS: 36415; 76801; 76817; 80053; 81001; 83690; 84702; 85025; 86900; 86901; Z7502; Z7610; 81003